=== PATIENT | female | born 1985 | race Caucasian/White ===

== ENCOUNTER 2020-06-09 19:15 | Emergency (ER) | payer OTHER ==
[~2020-06-09] VITALS: Ht 160 cm; Wt 93.0 kg
[2020-06-09 19:26] VITALS: BP 127/84
[2020-06-09] MEDS ORDERED: KETOROLAC 30 MG/ML VIAL IM ONE (19:55)
[2020-06-09 20:33] VITALS: BP 127/84
== END 2020-06-09 20:33 | disposition home or self-care (01) ==
LOC: MED 19:15
DX: H60.92 Unspecified otitis externa, left ear (principal)
CPT/HCPCS: 96372; 99283; J1885

== ENCOUNTER 2022-11-02 08:34 | Emergency (ER) | payer MEDICAID, OTHER ==
[~2022-11-02] VITALS: Ht 157.5 cm; Wt 94.8 kg
[2022-11-02 08:36] VITALS: BP 108/76
--- NOTE | 2022-11-02 08:45 | NUR ---
C/O LEFT PAIN X 3 DAYS AND C/I HEADACHE X TODAY. DENIES TRAUMA. WITHOUT READING GLASSES : VA: RIGHT EYE 20/100, LEFT EYE 20/100, BOTH EYES 20/70
[2022-11-02] MEDS ORDERED: IBUP-2213 PO (09:10)
[2022-11-02] MEDS ORDERED: CEPH-588 PO (09:10)
--- NOTE | 2022-11-02 09:29 | NUR ---
Patient discharged with v/s stable. Written and verbal after care instructions given and explained. Patient alert, oriented and verbalized understanding of instructions. Ambulatory with steady gait. All questions addressed prior to discharge. ID band removed. Patient advised to follow up with PMD. Rx of KEFLEX, IBUPROFEN given. Patient educated on indication of medication including possible reaction and side effects. Opportunity to ask questions provided and answered.
[2022-11-02 09:30] VITALS: BP 108/76
== END 2022-11-02 09:30 | disposition home or self-care (01) ==
LOC: MED 08:34
DX: H01.004 Unspecified blepharitis left upper eyelid (principal)
CPT/HCPCS: 99283

== ENCOUNTER 2023-08-25 00:59 | Emergency (ER) | payer SELFPAY ==
[~2023-08-25] VITALS: Ht 157.5 cm; Wt 90.7 kg
[~2023-08-25 00:59] MED LIST: CEPH-588 PO; IBUP-2213 PO
[2023-08-25] MEDS ORDERED: LIDOCAINE/EPI MPF 1%1:200000 30 ML VIAL INJ ONE (01:05)
[2023-08-25] MEDS ORDERED: BACITRACIN OINT 500 UNITS/GM PKT TP ONE (01:05)
[2023-08-25 01:15] VITALS: BP 110/79; PULSE 148; RESP 24; TEMP 97.9; O2SAT 95
[2023-08-25 02:08] VITALS: O2SAT 95
[2023-08-25] MEDS ORDERED: NAPR-54 PO (02:37)
[2023-08-25] MEDS ORDERED: IBUPROFEN 600 MG TAB PO ONE (02:50)
== END 2023-08-25 02:46 | disposition home or self-care (01) ==
LOC: MED 00:59
DX: S01.81XA Laceration without foreign body of other part of head, initial encounter (principal); Y04.0XXA Assault by unarmed brawl or fight, initial encounter; Y93.89 Activity, other specified; Y92.89 Other specified places as the place of occurrence of the external cause; Y99.8 Other external cause status
CPT/HCPCS: 12014; 70450; 99284; J2001

== ENCOUNTER 2023-08-30 22:36 | Emergency (ER) | payer OTHER ==
[~2023-08-30] VITALS: Ht 157.5 cm; Wt 94.3 kg
[~2023-08-30 22:36] MED LIST changes: +NAPR-54 PO
[2023-08-30 23:00] VITALS: BP 123/86; PULSE 90; RESP 17; TEMP 98; O2SAT 97
[2023-08-30 23:28] VITALS: O2SAT 98
[2023-08-30 23:32] VITALS: BP 116/82; PULSE 82; RESP 16; O2SAT 98
[2023-08-30] MEDS ORDERED: TRANEXAMIC ACID 1,000 MG/10 ML VIAL MC ONE (23:35)
[2023-08-30] MEDS ORDERED: ACETAMINOPHEN EXTRA STRENGTH 500 MG TAB PO ONE (23:40)
== END 2023-08-31 00:53 | disposition home or self-care (01) ==
LOC: MED 22:36
DX: T81.33XA Disruption of traumatic injury wound repair, initial encounter (principal); Z79.1 Long term (current) use of non-steroidal anti-inflammatories (NSAID); Z79.2 Long term (current) use of antibiotics; W01.0XXA Fall on same level from slipping, tripping and stumbling without subsequent striking against object, initial encounter; Y92.002 Bathroom of unspecified non-institutional (private) residence as the place of occurrence of the external cause; Y93.89 Activity, other specified; Y99.8 Other external cause status
CPT/HCPCS: 12020; 99285; J3490; 99283